=== PATIENT | female | born 1985 | race Caucasian/White ===

== ENCOUNTER 2016-08-18 16:08 | Emergency (ER) | payer MEDICAID ==
[2016-08-18] MEDS ORDERED: diazePAM 5 MG TABLET PO STA (16:22)
[2016-08-18] MEDS ORDERED: diazePAM 5 MG TABLET PO ONE (16:32)
== END 2016-08-18 17:16 | disposition home or self-care (01) ==
DX: F41.9 Anxiety disorder, unspecified (principal); F17.200 Nicotine dependence, unspecified, uncomplicated
CPT/HCPCS: 99283; A9270

== ENCOUNTER 2016-08-21 14:44 | Outpatient (CLI) | payer MEDICAID | END 2016-08-21 14:45 | disposition home or self-care (01) | DX: S69.92XA Unspecified injury of left wrist, hand and finger(s), initial encounter (principal) ==

== ENCOUNTER 2016-08-21 15:17 | Outpatient (CLI) | payer MEDICAID | END 2016-08-21 15:18 | disposition home or self-care (01) | DX: S69.92XA Unspecified injury of left wrist, hand and finger(s), initial encounter (principal); Z13.9 Encounter for screening, unspecified ==